=== PATIENT | male | born 1980 | race Caucasian/White ===

== ENCOUNTER 2017-12-14 00:50 | Emergency (ER) | payer BC ==
--- NOTE | 2017-12-14 01:08 | EDM.PDOC ---
ED HPI GENERAL MEDICAL PROBLEM - General Chief Complaint: Upper Extremity Injury/Pain Stated Complaint: SMASHED RT HAND Time Seen by Provider: 12/14/17 01:06 Source of Information: Reports: Patient - History of Present Illness INITIAL COMMENTS - FREE TEXT/NARRATIVE: HISTORY AND PHYSICAL: History of present illness: [ Patient presents with right hand pain, swelling of the second digit states he got his hand caught in a "drill "At work today " 12 hours prior to arrival. Apparently he had been seen in another clinic and declined x-rays at did not want to make this a portable incident No fever nausea vomiting chills sweats capillary refill under 2 seconds swelling of the second digit and bruising noted otherwise neurovascularly intact unaffected above the wrist Right hand is involved Review of systems: As per history of present illness and below otherwise all systems reviewed and negative. Past medical history: As per history of present illness and as reviewed below otherwise noncontributory. Surgical history: As per history of present illness and as reviewed below otherwise noncontributory. Social history: No reported history of drug or alcohol abuse. Family history: As per history of present illness and as reviewed below otherwise noncontributory. Physical exam: HEENT: Atraumatic, normocephalic, pupils reactive, negative for conjunctival pallor or scleral icterus, mucous membranes moist, throat clear, neck supple, nontender, trachea midline. Lungs: Clear to auscultation, breath sounds equal bilaterally, chest nontender. Heart: S1S2, regular, negative for clicks, rubs, or JVD. Abdomen: Soft, nondistended, nontender. Negative for masses or hepatosplenomegaly. Negative for costovertebral tenderness. Pelvis: Stable nontender. Genitourinary: Deferred. Rectal: Deferred. Extremities: Atraumatic, negative for cords or calf pain. Neurovascular unremarkable. Right upper extremity as per history of present illness Neuro: Awake, alert, oriented. Cranial nerves II through XII unremarkable. Cerebellum unremarkable. Motor and sensory unremarkable throughout. Exam nonfocal. Diagnostics: [ right hand 3 views ] Therapeutics: [ T dap ] Impression: [ right hand pain ]Nondisplaced fracture right second middle phalanx nondisplaced no open lesion Definitive disposition and diagnosis as appropriate pending reevaluation and review of above. R first finger Pain Score (Numeric/FACES): 8 - Related Data Allergies Allergy/AdvReac Type Severity Reaction Status Date / Time No Known Allergies Allergy Verified 12/14/17 01:05 Home Meds: Home Meds . [No Known Home Meds] 12/14/17 [History] Review of Systems - Review of Systems Review Of Systems: ROS reveals no pertinent complaints other than HPI. ED EXAM, GENERAL - Physical Exam Exam: See Below Course - Vital Signs Last Recorded V/S: Last Vital Signs Temp 97.5 F 12/14/17 01:02 Pulse 60 12/14/17 01:02 Resp 12 12/14/17 01:02 BP 134/77 12/14/17 01:02 Pulse Ox 98 12/14/17 01:02 - Orders/Labs/Meds Orders: Active Orders 24 hr Category Date Time Status Hand Comp Min 3V Rt [CR] Stat Exams 12/14/17 01:05 Taken Ibuprofen [Motrin] Med 12/14/17 01:37 Once 800 mg PO ONETIME ONE Departure - Departure Time of Disposition: 01:38 Disposition: Home, Self-Care 01 Condition: Good Clinical Impression: Fracture - Discharge Information Referrals: PCP,None [Primary Care Provider] - Forms: ED Department Discharge Additional Instructions: Rest ice ibuprofen Splint for comfort for comfort and protection Recommend light duty left hand duty only Follow-up with hand specialist, call number provided below to schedule appropriate follow-up [facility] - Plastic Surgery [address], [address] [place] [address] The following information is given to patients seen in the emergency department who are being discharged to home. This information is to outline your options for follow-up care. We provide all patients seen in our emergency department with a follow-up referral. The need for follow-up, as well as the timing and circumstances, are variable depending upon the specifics of your emergency department visit. If you don't have a primary care physician on staff, we will provide you with a referral. We always advise you to contact your personal physician following an emergency department visit to inform them of the circumstance of the visit and for follow-up with them and/or the need for any referrals to a consulting specialist. The emergency department will also refer you to a specialist when appropriate. This referral assures that you have the opportunity for follow-up care with a specialist. All of these measure are taken in an effort to provide you with optimal care, which includes your follow-up. Under all circumstances we always encourage you to contact your private physician who remains a resource for coordinating your care. When calling for follow-up care, please make the office aware that this follow-up is from your recent emergency room visit. If for any reason you are refused follow-up, please contact the [facility] emergency department at and asked to speak to the emergency department charge nurse. - My Orders Last 24 Hours: My Active Orders 12/14/17 01:05 Hand Comp Min 3V Rt [CR] Stat 12/14/17 01:37 Ibuprofen [Motrin] 800 mg PO ONETIME ONE - Assessment/Plan Last 24 Hours: My Active Orders 12/14/17 01:05 Hand Comp Min 3V Rt [CR] Stat 12/14/17 01:37 Ibuprofen [Motrin] 800 mg PO ONETIME ONE
[2017-12-14] MEDS ORDERED: Ibuprofen 800 MG Tab PO ONE (01:37)
--- NOTE | 2017-12-16 10:11 | CR ---
EXAM DATE: 12/14/17 PATIENT'S AGE: 37 Patient: ANDREA CRABTREE Facility: [place], [place] Site . Site : [id number] Study: XRay Extremity Right HAND [id number]/19/2018 1:20:58 AM Ordering Physician: Drew Liao Final Report: INDICATION: Right 2nd digit pain after crush injury earlier today. TECHNIQUE: Hand radiograph 3 views COMPARISON: None FINDINGS: Soft tissue swelling of the 2nd digit. Nondisplaced fracture involving the 2nd middle phalanx. Fracture lines appear to extend to the PIP joint. DIP and PIP joint alignment preserved on the lateral view. No radiopaque soft tissue foreign body. IMPRESSION: 1. Nondisplaced fracture involving right 2nd middle phalanx with likely extension to the PIP joint. Dictated by John Paul Ceja MD @ 12/14/2017 1:27:12 AM Dictated by: John Paul Ceja MD @ 12/14/2017 01:27:17 (Electronic Signature) Report Signed by Proxy. [facility]Brown
== END 2017-12-14 02:28 | disposition home or self-care (01) ==
LOC: MW.ED 00:50
DX: S62.650A Nondisplaced fracture of middle phalanx of right index finger, initial encounter for closed fracture (principal); Y99.0 Civilian activity done for income or pay; W23.0XXA Caught, crushed, jammed, or pinched between moving objects, initial encounter
CPT/HCPCS: 73130; 99283; A9270

== ENCOUNTER 2022-10-26 21:31 | Emergency (ER) | payer SELFPAY ==
[2022-10-26] MEDS ORDERED: Ibuprofen 600 MG Tab PO ONE (22:57)
== END 2022-10-26 23:12 ==
LOC: MW.ED 21:31
DX: M79.605 Pain in left leg (principal)
CPT/HCPCS: 99283; A9270

== ENCOUNTER 2025-01-16 23:17 | Emergency (ER) | payer MEDICAID ==
[2025-01-16] MEDS: Clindamycin HCl 150 MG Cap PO ONE (23:41)
== END 2025-01-16 23:47 | disposition home or self-care (01) ==
LOC: MW.ED 23:17
DX: L03.115 Cellulitis of right lower limb (principal); Z79.899 Other long term (current) drug therapy
CPT/HCPCS: 99282; A9270; 99285